=== PATIENT | female | born 1950 | race Caucasian/White ===

== ENCOUNTER 2022-03-26 08:54 | Outpatient (CLI) | payer MEDICARE, BC ==
[2022-03-26 10:57] LABS: Hemoglobin 11.6 g/dL (12.0-15.5); Mean Corpuscular HGB CONC 31.1 g/dL (32.0-36.0); Mean Corpuscular Hemoglobin 27.7 pg (27.0-33.0); Platelet Count 391 10x3/uL (150-450); RBC Distribution Width 14.5 % (11.5-14.5); Red Blood Cell (RBC) Count 4.19 10x6/uL (3.90-5.03); White Blood Cell (WBC) Count 5.5 10x3/uL (3.5-10.5)
[2022-03-26 11:11] LABS: PTT 25.5 sec (22.0-33.0); Prothrombin Time 10.5 sec (9.5-12.1)
[2022-03-26 11:12] LABS: Anion Gap 17 mmol/L (10-20); BUN (Urea Nitrogen) 9 mg/dL (9.8-20.1); Calc. Creatinine Clearance 0 mL/min (70-130); Calcium 9.9 mg/dL (7.8-10.44); Carbon Dioxide 25 mmol/L (23-31); Chloride 106 mmol/L (98-107); Estimated GFR 91; Glucose 85 mg/dL (83-110); Potassium 4.7 mmol/L (3.5-5.1); Sodium 143 mmol/L (136-145)
== END 2022-03-26 08:55 | disposition home or self-care (01) ==
LOC: LABBT 08:54
PROVIDERS: ATTEND Neurological Surgery
DX: Z01.812 Encounter for preprocedural laboratory examination (principal); M50.021 Cervical disc disorder at C4-C5 level with myelopathy; M50.122 Cervical disc disorder at C5-C6 level with radiculopathy
CPT/HCPCS: 80048; 85027; 85610; 85730

== ENCOUNTER 2022-03-29 09:39 | Day surgery (SDC) | payer MEDICARE, BC ==
[2022-03-28 09:01] VITALS: BMI 36.8
[2022-03-29] MEDS ORDERED: Neomycin-Polymyxin 1 ML AMP ONE (13:28)
[2022-03-29] MEDS ORDERED: Thrombin 5000 UNITS/5 ML VIAL ONE (13:28)
[2022-03-29] MEDS ORDERED: fentaNYL PF 100 MCG/2 ML SYRINGE ONE (13:36)
[2022-03-29] MEDS ORDERED: Sodium Chloride 0.9% 100 ML ONE (13:36)
[2022-03-29] MEDS ORDERED: CEFAZOLIN 2 GM VIAL ONE (13:36)
[2022-03-29] MEDS ORDERED: Ondansetron PF 4 MG/2 ML Vial ONE (13:52)
[2022-03-29] MEDS ORDERED: Dexamethasone 20 MG/5 ML VIAL ONE (13:52)
[2022-03-29] MEDS ORDERED: ePHEDrine 50 MG/ML VIAL ONE (13:52)
[2022-03-29] MEDS ORDERED: Rocuronium Bromide 10 MG/ML (10ML VIAL) ONE (13:52)
[2022-03-29] MEDS ORDERED: PROPOFOL 200 MG/20 ML VIAL ONE (13:52)
[2022-03-29] MEDS ORDERED: NEOSTIGMINE 3 MG/3 ML SYR 3 MG/3 ML SYRINGE ONE (13:52)
[2022-03-29] MEDS ORDERED: FENTANYL 50 MCG/ML 1 ML VIAL ONE ×3 (17:16→17:58)
[2022-03-29] MEDS ORDERED: HYDROcodone/Acetaminophen 10/325 mg Tablet ONE (18:30)
== END 2022-03-29 19:15 | disposition home or self-care (01) ==
LOC: SDC 09:39
PROVIDERS: ATTEND Neurological Surgery
PROC: 0RG20A0 Fusion of 2 or more Cervical Vertebral Joints with Interbody Fusion Device, Anterior Approach, Anterior Column, Open Approach (ICD-10-PCS; principal; 2022-03-29)
DX: M50.021 Cervical disc disorder at C4-C5 level with myelopathy (principal); M50.122 Cervical disc disorder at C5-C6 level with radiculopathy; M48.02 Spinal stenosis, cervical region; M48.061 Spinal stenosis, lumbar region without neurogenic claudication; M48.07 Spinal stenosis, lumbosacral region; G47.33 Obstructive sleep apnea (adult) (pediatric); I10 Essential (primary) hypertension; E03.9 Hypothyroidism, unspecified; K21.9 Gastro-esophageal reflux disease without esophagitis; M19.90 Unspecified osteoarthritis, unspecified site; J44.9 Chronic obstructive pulmonary disease, unspecified; E78.00 Pure hypercholesterolemia, unspecified; Z87.891 Personal history of nicotine dependence; Z79.890 Hormone replacement therapy; Z79.899 Other long term (current) drug therapy; Z88.2 Allergy status to sulfonamides; Z88.6 Allergy status to analgesic agent
CPT/HCPCS: 20930; 20936; 22551; 22552; 22845; 22853 ×2; C1713 ×5; J3010; J1100; J2405; J2704; J3490; J7643

== ENCOUNTER 2022-06-15 10:28 | Outpatient (CLI) | payer MEDICARE, BC | END 2022-06-15 10:29 | disposition home or self-care (01) | LOC: TBSIIMAG 10:28 | PROVIDERS: ATTEND Neurological Surgery | DX: G95.11 Acute infarction of spinal cord (embolic) (nonembolic) (principal); R93.7 Abnormal findings on diagnostic imaging of other parts of musculoskeletal system | CPT/HCPCS: 72146 ==